=== PATIENT | female | born 1935 | race African-American/Black ===

== ENCOUNTER 2019-07-20 11:47 | Emergency (ER) | payer MEDICARE, MEDICAID ==
[2019-07-20] MEDS ORDERED: LIDOCAINE 5% (700 MG) TRANSDERMAL ADH..PATCH TP ONE (12:43)
[2019-07-20] MEDS ORDERED: DIAZEPAM 2 MG TABLET PO ONE ×2 (12:44→17:20)
--- NOTE | 2019-07-20 12:45 | ER Document Report ---
ED Medical Screen (RME) - General Chief Complaint: Neck Problem Stated Complaint: BACK PAIN Time Seen by Provider: 07/20/19 12:37 Mode of Arrival: Wheelchair Notes: Patient presents with a left sided neck tenderness that is worse with movement of the head. Patient denies any fever or trauma. I have greeted and performed a rapid initial assessment of this patient. A comprehensive ED assessment and evaluation of the patient, analysis of test results and completion of the medical decision making process will be conducted by additional ED providers. - Related Data Allergies/Adverse Reactions: acetaminophen [From Percocet] Allergy (Verified 07/20/19 12:38) iodine Allergy (Verified 07/20/19 12:38) oxycodone [From Percocet] Allergy (Verified 07/20/19 12:38) Physical Exam - Vital signs Vitals: Temp Pulse Resp BP Pulse Ox 98.7 F 63 16 153/52 H 98 07/20/19 11:53 07/20/19 11:53 07/20/19 11:53 07/20/19 11:53 07/20/19 11:53 - General Notes: Left trapezius muscle tenderness with spasm Course - Vital Signs Vital signs: Temp Pulse Resp BP Pulse Ox 98.7 F 63 16 153/52 H 98 07/20/19 11:53 07/20/19 11:53 07/20/19 11:53 07/20/19 11:53 07/20/19 11:53
--- NOTE | 2019-07-20 14:32 | ER Document Report ---
ED Neck/Back Problem - General Chief Complaint: Neck Problem Stated Complaint: BACK PAIN Time Seen by Provider: 07/20/19 12:37 Primary Care Provider: ELLA NORTON MD [Primary Care Provider] - Follow up as needed Mode of Arrival: Wheelchair Notes: Patient is a 83-year-old female with a history of hypertension, type 2 diabetes, high cholesterol presents to the emergency department with a chief complaint of left lateral neck pain. Patient states about 1 week ago she started to have stiffness to the left side of her neck. Patient reports that the pain is also located on the left side of her head as well. Patient denies a fall or injury. Patient reports she has taken multiple [id number] medications such as Advil and BC powders without relief. Patient reports movement makes it the left side of her neck hurt worse. Patient denies use of blood thinners. Patient denies any new medications since the symptoms have started. Patient reports she has kept her head turned to the right over the past week as this appears to be her position of comfort. Patient denies recent illness such as cough, cold, fever or sore throat. Patient reports that the left-sided neck pain does not radiate down into her arm. Patient denies numbness or tingling to her upper extremities. - Related Data Allergies/Adverse Reactions: acetaminophen [From Percocet] Allergy (Verified 07/20/19 12:38) iodine Allergy (Verified 07/20/19 12:38) oxycodone [From Percocet] Allergy (Verified 07/20/19 12:38) Past Medical History - General Information source: Patient - Social History Smoking Status: Never Smoker Frequency of alcohol use: None Drug Abuse: None Lives with: Family Family History: None Patient has suicidal ideation: No Patient has homicidal ideation: No - Past Medical History Cardiac Medical History: Reports: Hx Hypercholesterolemia, Hx Hypertension Pulmonary Medical History: Reports: None EENT Medical History: Reports: None Neurological Medical History: Reports: None Endocrine Medical History: Reports: Hx Diabetes Mellitus Type 2 Renal/ Medical History: Reports: None Malignancy Medical History: Reports: Hx Cervical Cancer GI Medical History: Reports: Hx Gastroesophageal Reflux Disease Musculoskeletal Medical History: Reports None Skin Medical History: Reports None Psychiatric Medical History: Reports: None Traumatic Medical History: Reports: None Infectious Medical History: Reports: None Surgical Hx: Negative Review of Systems - Review of Systems Constitutional: No symptoms reported EENT: No symptoms reported Cardiovascular: No symptoms reported Respiratory: No symptoms reported Gastrointestinal: No symptoms reported Genitourinary: No symptoms reported Female Genitourinary: No symptoms reported Musculoskeletal: See HPI Skin: No symptoms reported Hematologic/Lymphatic: No symptoms reported Neurological/Psychological: No symptoms reported Physical Exam - Vital signs Vitals: Temp Pulse Resp BP Pulse Ox 98.7 F 63 16 153/52 H 98 07/20/19 11:53 07/20/19 11:53 07/20/19 11:53 07/20/19 11:53 07/20/19 11:53 Interpretation: Hypertensive - Notes Notes: GENERAL: Well-appearing, well-nourished and in no acute distress. HEAD: Atraumatic, head turned to the right for position of comfort. EYES: Pupils equal round and reactive to light, extraocular movements intact, sclera anicteric, conjunctiva are normal. ENT: Nares patent, oropharynx clear without exudates. Moist mucous membranes. NECK: Limited ROM of the neck due to pain the left trapezius with palpation and with movement. + cervical midline tenderness. LUNGS: Breath sounds clear to auscultation bilaterally and equal. No wheezes rales or rhonchi. HEART: Regular rate and rhythm without murmurs, rubs or gallops. ABDOMEN: Soft, nontender, normoactive bowel sounds. No guarding, no rebound. No masses appreciated. BACK: No thoracic, lumbar midline tenderness. No saddle anesthesia, normal distal neurovascular exam. GENITOURINARY: Deferred. EXTREMITIES: Normal range of motion, no pitting or edema. No clubbing or cyanosis. NEUROLOGICAL: Cranial nerves II through XII grossly intact. Normal speech, normal gait. PSYCH: Normal mood, normal affect. SKIN: Warm, Dry, normal turgor, no rashes or lesions noted. Course - Re-evaluation Re-evalutation: 07/20/19 14:31 Patient did receive 2 mg of p.o. Valium as well as a lidocaine patch to the left lateral neck. Patient reports this did slightly help with her pain. Patient does not have her medications with her and cannot tell me the specific medication that she takes but denies any mental health medications. 07/20/19 17:39 Patient reports she did slightly feel better after receiving the Valium but that her neck still feels stiff. I did inform the patient that the usual treatment for torticollis is anti-inflammatories and muscle relaxants. I will prescribe her Skelaxin. Patient verbalized understanding but is upset that she is not able to get her prescriptions filled until Monday. She reports that her pharmacy is closed until then. Patient is requesting for us to give multiple doses of this medication to last her until Monday. I did inform her with this hospital facility does not dispense medications. I told her I would give her another dose of the Valium prior to discharge. Patient encouraged to use warm compresses, physical therapy and to follow-up with her primary care physician as she may require a referral to physical therapy. Patient denies rash, fever my suspicion for a meningitis is extremely low. - Vital Signs Vital signs: Temp Pulse Resp BP Pulse Ox 98.7 F 63 16 153/52 H 98 07/20/19 11:53 07/20/19 11:53 07/20/19 11:53 07/20/19 11:53 07/20/19 11:53 - Laboratory Laboratory results interpreted by me: 07/20/19 14:20 POC Glucose 129 H Discharge - Discharge Clinical Impression: Torticollis Condition: Stable Disposition: HOME, SELF-CARE Additional Instructions: Today you are seen in the emergency department for neck pain. We did obtain a CAT scan of the neck which was negative for any acute bony abnormality such as a fracture or dislocation. Your symptoms are consistent with torticollis. This is usually due to the spasming of the neck muscles locking the neck into a crooked position. Torticollis is usually treated with heat to help relax the muscles, muscle relaxing and anti-inflammatory medications. After the initiation of the muscle relaxers you should start to feel better over the next few days. Although you may still have pain for a few weeks. If you cannot move your neck in the next few days, symptoms worsen, you develop high fever, severe headache, numbness or weakness weakness or any alarming symptoms please return to the emergency department immediately. Torticollis You have torticollis, often called "wry neck." This is due to spasm of neck muscles -- locking the neck into a crooked position. Many different problems can lead to torticollis, such as a minor injury, sleeping with tension on the neck, or inflammation in the glands of the neck. Torticollis is usually treated with heat to relax the neck muscles, but the physician may recommend cold packs if a minor injury is suspected as the cause. Muscle relaxing and antiinflammatory medicine are often prescribed. You may need a neck collar to support your head. Improvement is usually rapid. Usually, the neck can be moved fully within two days, although some pain may persist for a few weeks. Call the doctor at once if you worsen, or if you develop high fever, severe headache, numbness or weakness, or other alarming symptoms. Prescriptions: Metaxalone [Skelaxin 800 mg Tablet] 800 mg PO QID #20 tablet Referrals: ELLA NORTON MD [Primary Care Provider] - Follow up as needed
[2019-07-20] MEDS ORDERED: METAXALONE 800 MG TABLET PO ONE (14:35)
--- NOTE | 2019-07-20 15:08 | RADIOLOGY REPORT (SQ) ---
EXAM DESCRIPTION: CERV SP 4 OR 5 VIEWS COMPLETED DATE/TIME: 07/20/2019 2:58 pm REASON FOR STUDY: cervical midline tenderness COMPARISON: None. NUMBER OF VIEWS: Five views including obliques. TECHNIQUE: AP, lateral, obliques and odontoid radiographic images acquired of the cervical spine. LIMITATIONS: None. FINDINGS: MINERALIZATION: Osteopenia. ALIGNMENT: Normal. VERTEBRAE: Maintained height. No fracture or worrisome bone lesion. DISCS: Multilevel disc space narrowing with osteophytes. POSTERIOR ELEMENTS: Pedicles and facets are intact. No posterior arch defects. Facet arthropathy is present. FORAMINA: Narrowed at the levels of maximal disc and facet disease. HARDWARE: None in the spine. PARASPINAL SOFT TISSUES: Normal. OTHER: No other significant finding. IMPRESSION: SPONDYLOSIS WITHOUT BONE LESION OR FRACTURE. TECHNICAL DOCUMENTATION: JOB ID: [id number] 2010 [employer]- All Rights Reserved Reading location - IP/workstation name: [email or web address]
[2019-07-20 17:48] VITALS: BP 177/71
== END 2019-07-20 17:46 | disposition home or self-care (01) ==
LOC: EDSEX → ER 11:47
DX: M43.6 Torticollis (principal); M54.2 Cervicalgia; R51 Headache; I10 Essential (primary) hypertension; E11.9 Type 2 diabetes mellitus without complications; Z88.6 Allergy status to analgesic agent; Z88.5 Allergy status to narcotic agent; Z85.41 Personal history of malignant neoplasm of cervix uteri
CPT/HCPCS: 99283; 82962; 72050; A9270 ×2; J3490

== ENCOUNTER 2020-08-10 10:53 | Emergency (ER) | payer MEDICARE, MEDICAID ==
[2020-08-10] MEDS ORDERED: DEXTROSE 50%-WATER 25 GM/50 ML DISP.SYRIN IV ONE ×2 (11:20→12:36)
--- NOTE | 2020-08-10 11:22 | ER Document Report ---
ED Medical Screen (RME) - General Chief Complaint: Low Blood Sugar Stated Complaint: BLOOD SUGAR ISSUES Time Seen by Provider: 08/10/20 11:18 Primary Care Provider: ELLA NORTON MD [Primary Care Provider] - Follow up as needed Mode of Arrival: Wheelchair Information source: Patient Notes: 84-year-old female presented to ED for blood sugar of 50. CT checked her Accu- Chek here it was 31. Repeat was 36. I have ordered diabetic labs early Accu- Cheks and glucose. She is alert oriented able to answer my questions. She states she did not take her diabetic medicine this morning. I have greeted and performed a rapid initial assessment of this patient. A comprehensive ED assessment and evaluation of the patient, analysis of test results and completion of medical decision making process will be conducted by an additional ED providers. - Related Data Allergies/Adverse Reactions: acetaminophen [From Percocet] Allergy (Verified 07/20/19 12:38) iodine Allergy (Verified 07/20/19 12:38) oxycodone [From Percocet] Allergy (Verified 07/20/19 12:38) Past Medical History - Past Medical History Cardiac Medical History: Reports: Hx Hypercholesterolemia, Hx Hypertension Endocrine Medical History: Reports: Hx Diabetes Mellitus Type 2 Malignancy Medical History: Reports: Hx Cervical Cancer GI Medical History: Reports: Hx Gastroesophageal Reflux Disease Doctor's Discharge - Discharge Referrals: ELLA NORTON MD [Primary Care Provider] - Follow up as needed
--- NOTE | 2020-08-10 11:53 | ER Document Report ---
ED Blood Sugar Problem - General Mode of Arrival: Wheelchair <GOOD LOJA - Last Filed: 08/10/20 20:22> <JEET OH - Last Filed: 08/10/20 21:54> - General Chief Complaint: Low Blood Sugar Stated Complaint: BLOOD SUGAR ISSUES Time Seen by Provider: 08/10/20 11:18 Primary Care Provider: ELLA AZEVEDO MD [Primary Care Provider] - Follow up as needed Notes: Patient is a 84-year-old female with a history of type 2 diabetes, hypertension, high cholesterol who presents emergency department with a chief complaint of low blood sugar. Patient reports she takes oral medication for her diabetes. Patient states her last dose was yesterday. Patient reports throughout the night she generally was not feeling well. Patient states she checked her blood sugar at home and it was in the 50s. Upon arrival to triage the patient's blood sugar was 36. This did improve after receiving juice. Patient is asymptomatic at this time. Patient denies chest pain or shortness of breath. Patient denies any new medications or change in medication dosages. Dr. Azevedo is her primary care physician. (GOOD LOJA) - Related Data Allergies/Adverse Reactions: acetaminophen [From Percocet] Allergy (Verified 08/10/20 12:15) iodine Allergy (Verified 08/10/20 12:15) oxycodone [From Percocet] Allergy (Verified 08/10/20 12:15) Past Medical History - General Information source: Patient - Social History Smoking Status: Never Smoker Frequency of alcohol use: None Drug Abuse: None Family History: None - Past Medical History Cardiac Medical History: Reports: Hx Hypercholesterolemia, Hx Hypertension Pulmonary Medical History: Reports: None EENT Medical History: Reports: None Neurological Medical History: Reports: None Endocrine Medical History: Reports: Hx Diabetes Mellitus Type 2 Renal/ Medical History: Reports: None Malignancy Medical History: Reports: Hx Cervical Cancer GI Medical History: Reports: Hx Gastroesophageal Reflux Disease Musculoskeletal Medical History: Reports None Skin Medical History: Reports None Psychiatric Medical History: Reports: None Traumatic Medical History: Reports: None Infectious Medical History: Reports: None Surgical Hx: Negative <GOOD LOJA - Last Filed: 08/10/20 20:22> Physical Exam <GOOD LOJA - Last Filed: 08/10/20 20:22> - Vital signs Vitals: Pulse Ox 100 08/10/20 11:23 - Notes Notes: GENERAL: Well-appearing, well-nourished and in no acute distress. HEAD: Atraumatic, normocephalic. EYES: Pupils equal round and reactive to light, extraocular movements intact, sclera anicteric, conjunctiva are normal. ENT: TMs normal, nares patent, oropharynx clear without exudates. Moist mucous membranes. NECK: Normal range of motion, supple without lymphadenopathy or JVD. LUNGS: Breath sounds clear to auscultation bilaterally and equal. No wheezes rales or rhonchi. HEART: Regular rate and rhythm without murmurs, rubs or gallops. ABDOMEN: Soft, nontender, normoactive bowel sounds. No guarding, no rebound. No masses appreciated. BACK: No cervical, thoracic, lumbar midline tenderness. No saddle anesthesia, normal distal neurovascular exam. GENITOURINARY: Deferred. EXTREMITIES: Normal range of motion, +2 pitting edema to b/l lower extremities. No clubbing or cyanosis. NEUROLOGICAL: Cranial nerves II through XII grossly intact. Normal speech, normal gait. PSYCH: Normal mood, normal affect. SKIN: Warm, Dry, normal turgor, no rashes or lesions noted. (GOOD LOJA) Course - Laboratory Result Diagrams: 08/10/20 11:58 08/10/20 11:58 <GOOD LOJA - Last Filed: 08/10/20 20:22> - Laboratory Result Diagrams: 08/10/20 11:58 08/10/20 11:58 <JEET OH - Last Filed: 08/10/20 21:54> - Re-evaluation Re-evalutation: 08/10/20 15:49 Patient is tolerating foods well. Patient did eat a sandwich and is drinking liquids. We will recheck her blood sugar 1 hour post discontinuing IV fluids that did contain dextrose. Patient is alert and has no complaints. 08/10/20 15:[address] Azevedo. 08/10/20 16:04 I did speak with Dr. Azevedo who is the patient's primary care physician. He states that a few months ago she did not have elevated liver enzymes. He does recommend obtaining a CT of the abdomen and pelvis, adding on a lipase, and giving D5 normal saline as a bolus. 08/10/20 17:00 Patient is a retired RN. We will order a CT of abdomen and pelvis without oral IV contrast 08/10/20 18:47 Patient continues to wait for CAT scan. Patient in no acute distress. Patient's blood sugar is normal. 08/10/20 19:50 The CAT scan did show a prominent gallstone. I have ordered a right upper quadrant ultrasound. I did speak with Dr. Azevedo who states that if the patient does not have an acute cholecystitis he does recommend following up in his office tomorrow at 9 AM. I did update the patient in regards to this plan. He does want the patient to stop the glipizide. 08/10/20 20:22 Report was given to Jeet Jessica NP with the oncoming shift. He is aware of the plan after the patient received the ultrasound. (GOOD LOJA) 08/10/20 20:31 Report received on the patient. Awaiting ultrasound and disposition. If ultrasound does not show acute cholecystitis patient may be discharged to follow-up with PCP tomorrow at 9 AM 08/10/20 21:45 I went and evaluated the patient. She has no abdominal pain on exam. Her ultrasound shows cholelithiasis without evidence of cholecystitis. There was a question of increased Doppler flow suggesting gallbladder malignancy but this was not evident on her CT imaging. I discussed this with Dr. Azevedo her PCP who indicates that he would still like the patient discharged home to follow-up with him in the office tomorrow morning at 9 AM. I communicated this to the patient and we did discuss her ultrasound findings including the possibility of malignancy and cancer and she is aware that this will need further follow-up 08/10/20 21:51 Is alert and oriented answering all questions appropriately. (JEET OH) - Vital Signs Vital signs: Temp Pulse Resp BP Pulse Ox 17 192/73 H 100 08/10/20 20:02 08/10/20 20:02 08/10/20 20:02 - Laboratory Laboratory results interpreted by me: 08/10/20 08/10/20 08/10/20 11:17 11:57 11:58 Hgb 11.5 L Hct 34.8 L RDW 14.5 H Lymph % (Auto) 5.6 L Seg Neutrophils % 87.2 H BUN Est GFR ( Amer) Est GFR (MDRD) Non-Af Glucose POC Glucose 36 L* 69 L AST ALT Alkaline Phosphatase Urine Protein Urine Blood Urine Urobilinogen Ur Leukocyte Esterase 08/10/20 08/10/20 08/10/20 11:58 15:12 15:21 Hgb Hct RDW Lymph % (Auto) Seg Neutrophils % BUN 35 H Est GFR ( Amer) 54 L Est GFR (MDRD) Non-Af 45 L Glucose 48 L POC Glucose 169 H AST 329 H ALT 320 H Alkaline Phosphatase 169 H Urine Protein 30 H Urine Blood MODERATE H Urine Urobilinogen 4.0 H Ur Leukocyte Esterase TRACE H 08/10/20 18:33 Hgb Hct RDW Lymph % (Auto) Seg Neutrophils % BUN Est GFR ( Amer) Est GFR (MDRD) Non-Af Glucose POC Glucose 138 H AST ALT Alkaline Phosphatase Urine Protein Urine Blood Urine Urobilinogen Ur Leukocyte Esterase Discharge <GOOD LOJA - Last Filed: 08/10/20 20:22> <JEET OH - Last Filed: 08/10/20 21:54> - Discharge Clinical Impression: Hypoglycemia, Kidney stone on right side, Elevated liver enzymes, Abnormal ultrasound of gallbladder Cholelithiasis Qualifiers: Cholelithiasis location: gallbladder Cholecystitis presence: without cholecystitis Biliary obstruction: with biliary obstruction Qualified Code(s): K80.21 - Calculus of gallbladder without cholecystitis with obstruction Condition: Stable Disposition: HOME, SELF-CARE Additional Instructions: Follow-up tomorrow with your primary care provider Dr. Azevedo at 9 AM in the office. Your liver functions were mildly elevated today and this needs further work-up it is likely related to the fact that you have a gallstone in your gallbladder. There was also some concern for malignancy or cancer in the gallbladder and this will need further work-up and evaluation. This was discussed with your primary care provider from the emergency department tonight. It was also noted on your imaging studies that you are passing a kidney stone on the right side. Referrals: ELLA AZEVEDO MD [Primary Care Provider] - Follow up as needed
[2020-08-10 12:12] LABS: ABSOLUTE BASOPHILS # (AUTO) 0.1 10^3/uL (0.0-0.2); ABSOLUTE EOSINOPHILS # (AUTO) 0.1 10^3/uL (0.0-0.6); ABSOLUTE LYMPHOCYTES (AUTO) 0.5 10^3/uL (0.5-4.7); ABSOLUTE MONOCYTES (AUTO) 0.4 10^3/uL (0.1-1.4); ABSOLUTE NEUT (AUTO) 7.1 10^3/uL (1.7-8.2); BASOPHILS % (AUTO) 0.6 % (0-2); EOSINOPHILS % (AUTO) 1.3 % (0-6); HEMATOCRIT 34.8 % (36.0-47.0); HEMOGLOBIN 11.5 g/dL (12.0-15.5); LYMPHOCYTES % (AUTO) 5.6 % (13-45); MEAN CORPUSCULAR HEMOGLOBIN 29.9 pg (27.0-33.4); MEAN CORPUSCULAR VOLUME 91 fl (80-97); MONOCYTES % (AUTO) 5.3 % (3-13); PLATELET COUNT 297 10^3/uL (150-450); RED BLOOD COUNT 3.84 10^6/uL (3.72-5.28); RED CELL DISTRIBUTION WIDTH 14.5 % (11.5-14.0); SEGMENTED NEUTROPHILS % (AUTO) 87.2 % (42-78); TOTAL CELLS COUNTED % (AUTO) 100 %; WHITE BLOOD COUNT 8.2 10^3/uL (4.0-10.5)
[2020-08-10 12:37] LABS: ALBUMIN 3.9 g/dL (3.5-5.0); ALKALINE PHOSPHATASE 169 U/L (38-126); ANION GAP 8 (5-19); ASPARTATE AMINO TRANSFERASE 329 U/L (14-36); BILIRUBIN,DIRECT 0.4 mg/dL (0.0-0.4); BILIRUBIN,TOTAL 0.6 mg/dL (0.2-1.3); BLOOD UREA NITROGEN 35 mg/dL (7-20); CALCIUM 9.7 mg/dL (8.4-10.2); CARBON DIOXIDE 28 mmol/L (22-30); CHLORIDE 105 mmol/L (98-107); POTASSIUM 4.7 mmol/L (3.6-5.0); TOTAL PROTEIN 6.9 g/dL (6.3-8.2)
[2020-08-10 12:41] LABS: GLUCOSE 48 mg/dL (75-110)
[2020-08-10] MEDS ORDERED: DEXTROSE 5%-NORMAL SALINE 1,000 ML IV ONE ×2 (13:12→16:04)
[2020-08-10 15:26] LABS: AMORPHOUS SEDIMENT,URINE TRACE /HPF; APPEARANCE,URINE CLOUDY; BILIRUBIN,URINE NEGATIVE (NEGATIVE); COLOR,URINE AMBER; GLUCOSE, URINE NEGATIVE (NEGATIVE); KETONES,URINE NEGATIVE (NEGATIVE); LEUKOCYTE ESTERASE,URINE TRACE (NEGATIVE); NITRITE,URINE NEGATIVE (NEGATIVE); PROTEIN,URINE 30 mg/dL (NEGATIVE); URINE SPECIFIC GRAVITY 1.012
--- NOTE | 2020-08-10 18:51 | EKG REPORT ---
SEVERITY:- ABNORMAL ECG - SINUS RHYTHM FIRST DEGREE AV BLOCK LEFT ANTERIOR FASCICULAR BLOCK LOW VOLTAGE THROUGHOUT : Confirmed by: Brayan Olivera MD 10-Aug-2020 18:50:48
--- NOTE | 2020-08-10 19:43 | RADIOLOGY REPORT (SQ) ---
EXAM DESCRIPTION: CT ABD/PELVIS NO ORAL OR IV IMAGES COMPLETED DATE/TIME: 08/10/2020 7:25 pm REASON FOR STUDY: Elevated LFT's, new onset COMPARISON: None. TECHNIQUE: CT scan of the abdomen and pelvis performed without intravenous or oral contrast. Images reviewed with lung, soft tissue, and bone windows. Reconstructed coronal and sagittal MPR images revi ewed. All images stored on PACS. All CT scanners at this facility use dose modulation, iterative reconstruction, and/or weight based d osing when appropriate to reduce radiation dose to as low as reasonably achievable (ALARA). [facility]: Dose Right [facility]: CareDose [facility]: Dose Right [facility]: Teradose 4D [facility]: Smart Yotpo RADIATION DOSE: CT Rad equipment meets quality standard of care and radiation dose reduction techniq ues were employed. CTDIvol: 13.4 mGy. DLP: 723 mGy-cm.mGy. LIMITATIONS: None. FINDINGS: LOWER CHEST: No significant findings. No nodules or infiltrates. NON-CONTRASTED LIVER, SPLEEN, ADRENALS: Evaluation limited by lack of IV contrast. No identified sign ificant masses. PANCREAS: No masses. No peripancreatic inflammatory changes. GALLBLADDER: There is a prominent gallstone in the fundal region of the gallbladder. RIGHT KIDNEY AND URETER: No suspicious masses. Assessment limited by lack of IV contrast. 4 mm calc ulus at the right UPJ. No hydronephrosis or hydroureter. LEFT KIDNEY AND URETER: No suspicious masses. Assessment limited by lack of IV contrast. No signifi cant calcifications. No hydronephrosis or hydroureter. AORTA AND RETROPERITONEUM: No aneurysm. No retroperitoneal masses or adenopathy. BOWEL AND PERITONEAL CAVITY: Sigmoid diverticulosis. No acute inflammation. No obvious bowel mass. APPENDIX: Normal. PELVIS, BLADDER, AND ABDOMINAL WALL:No abnormal masses. No free fluid. Bladder normal. BONES: No significant findings. OTHER: No other significant finding. IMPRESSION: 4 mm calculus at the right UPJ. No significant hydronephrosis. Diverticulosis coli. N o other significant finding in the abdomen or pelvis. COMMENT: Quality ID # [id number]: Final reports with documentation of one or more dose reduction techniques (e.g., Automated exposure control, adjustment of the mA and/or kV according to patient size, use of iterative reconstruction technique) TECHNICAL DOCUMENTATION: JOB ID: [id number] 2010 [employer]- All Rights Reserved Reading location - IP/workstation name: [email or web address]
--- NOTE | 2020-08-10 21:37 | RADIOLOGY REPORT (SQ) ---
EXAM DESCRIPTION: US ABDOMEN LIMITED COMPLETED DATE/TME: 08/10/2020 19:47 CLINICAL HISTORY: 84 years, Female, gallstone, elevated liver enzymes COMPARISON: Prior CT performed earlier the same day TECHNIQUE: Axial 2-D grayscale images of the abdomen were acquired. Doppler was utilized. LIMITATIONS: None. FINDINGS: Visualized portions of the pancreas appear normal in echogenicity. Visualized portions of the abdominal aorta appear normal in size. Visualized portions of the IVC show no suspicious finding. The liver is normal in echogenicity. It measures 15.4 cm in length. Antegrade flow is documented within the main portal vein. Mild intrahepatic biliary ductal dilatation is evident. Right kidney measures 9.0 x 4.2 x 4.4 cm in size. No hydronephrosis. Gallbladder wall thickness measures 4 mm. Common bile duct diameter measures 3 mm. Echogenic polypoid lesion is evident about the gallbladder wall with associated Doppler flow measuring at least 3.2 x 2.3 cm in size. Doppler flow is identified on image 37. Likewise, there is a gallstone located within the gallbladder fundus. No significant free fluid is identified within the imaged abdomen. IMPRESSION: Cholelithiasis. In addition, there is an echogenic polypoid mass located about the gallbladder wall which appears to demonstrate an element of Doppler flow, highly concerning for gallbladder malignancy. Surgical consultation is advised. Otherwise, no compelling evidence of acute cholecystitis. Suspect mild intrahepatic biliary ductal dilatation. No significant common bile duct dilatation. copyright 2010 [employer]- All Rights Reserved
[2020-08-11 03:44] VITALS: BP 172/49
== END 2020-08-11 03:45 | disposition home or self-care (01) ==
LOC: ER 10:53
DX: E11.649 Type 2 diabetes mellitus with hypoglycemia without coma (principal); K80.20 Calculus of gallbladder without cholecystitis without obstruction; N20.1 Calculus of ureter; K57.30 Diverticulosis of large intestine without perforation or abscess without bleeding; K82.9 Disease of gallbladder, unspecified; R74.8 Abnormal levels of other serum enzymes; I10 Essential (primary) hypertension; Z85.41 Personal history of malignant neoplasm of cervix uteri; Z79.84 Long term (current) use of oral hypoglycemic drugs; Z88.8 Allergy status to other drugs, medicaments and biological substances; Z88.6 Allergy status to analgesic agent; Z88.5 Allergy status to narcotic agent
CPT/HCPCS: 93005; 99285; 96375; 96365; 96366; 36415; 82962; 83690; 85025; 80053; 81001; 76705; 74176; 93010; J3490; J7042

== ENCOUNTER → 2020-08-13 | Outpatient (CLI) | payer MEDICARE, MEDICAID ==
[2020-08-13 12:17] LABS: ABSOLUTE EOSINOPHILS # (AUTO) 0.3 10^3/uL (0.0-0.6); ABSOLUTE LYMPHOCYTES (AUTO) 1.2 10^3/uL (0.5-4.7); ABSOLUTE MONOCYTES (AUTO) 0.7 10^3/uL (0.1-1.4); ABSOLUTE NEUT (AUTO) 5.4 10^3/uL (1.7-8.2); BASOPHILS % (AUTO) 0.6 % (0-2); EOSINOPHILS % (AUTO) 3.9 % (0-6); HEMATOCRIT 33.5 % (36.0-47.0); HEMOGLOBIN 11.2 g/dL (12.0-15.5); LYMPHOCYTES % (AUTO) 15.8 % (13-45); MEAN CORPUSCULAR HEMOGLOBIN 30.3 pg (27.0-33.4); MEAN CORPUSCULAR HGB CONC 33.4 g/dL (32.0-36.0); MEAN CORPUSCULAR VOLUME 91 fl (80-97); MONOCYTES % (AUTO) 8.9 % (3-13); PLATELET COUNT 270 10^3/uL (150-450); SEGMENTED NEUTROPHILS % (AUTO) 70.8 % (42-78); TOTAL CELLS COUNTED % (AUTO) 100 %; WHITE BLOOD COUNT 7.7 10^3/uL (4.0-10.5)
[2020-08-13 12:47] LABS: ALBUMIN 3.7 g/dL (3.5-5.0); ALKALINE PHOSPHATASE 195 U/L (38-126); ANION GAP 10 (5-19); ASPARTATE AMINO TRANSFERASE 137 U/L (14-36); BILIRUBIN,DIRECT 0.8 mg/dL (0.0-0.4); BILIRUBIN,TOTAL 1.3 mg/dL (0.2-1.3); BLOOD UREA NITROGEN 27 mg/dL (7-20); CALCIUM 9.5 mg/dL (8.4-10.2); CARBON DIOXIDE 24 mmol/L (22-30); CHLORIDE 105 mmol/L (98-107); GLUCOSE 156 mg/dL (75-110); POTASSIUM 4.5 mmol/L (3.6-5.0); TOTAL PROTEIN 6.8 g/dL (6.3-8.2)
== END ==
LOC: OD 10:48
PROVIDERS: ATTEND Family Medicine
DX: K82.9 Disease of gallbladder, unspecified (principal)
CPT/HCPCS: 36415; 80053; 83690; 85025